=== PATIENT | female | born 1975 | race Caucasian/White ===

== ENCOUNTER → 2020-09-06 15:39 | Outpatient (CLI) | payer OTHER, SELFPAY ==
--- NOTE | 2020-09-06 15:40 | DI.MG.S_ITS ---
BILATERAL DIGITAL SCREENING MAMMOGRAM 3D/2D WITH CAD: 09/06/2020 CLINICAL: Routine screening. Baseline exam. No prior exams were available for comparison. The tissue of both breasts is heterogeneously dense. This may lower the sensitivity of mammography. Current study was also evaluated with a Computer Aided Detection (CAD) system. No significant masses, calcifications, or other findings are seen in either breast. IMPRESSION: NEGATIVE There is no mammographic evidence of malignancy. A 1 year screening mammogram is recommended. This exam was interpreted at Station ID: [id number]. NOTE: For mammograms, a report in lay terms will be sent to the patient. Approximately 15% of breast malignancies will not be visualized mammographically. In the management of a palpable breast mass, a negative mammogram must not discourage biopsy of a clinically suspicious lesion. Electronically Signed By: Demetrius hartmann/misael:09/06/2020 17:22:27 letter sent: Normal Exam ACR BI-RADS Category 1: Negative 3341F
== END ==
PROVIDERS: Referring Provider Obstetrics & Gynecology; Visit Provider Obstetrics & Gynecology
DX: Z12.31 Encounter for screening mammogram for malignant neoplasm of breast (principal)
CPT/HCPCS: 77063; 77067

== ENCOUNTER → 2022-04-27 10:32 | Outpatient (CLI) | payer OTHER, SELFPAY ==
--- NOTE | 2022-04-27 10:33 | DI.MG.S_ITS ---
BILATERAL DIGITAL SCREENING MAMMOGRAM 3D/2D WITH CAD: 04/27/2022 CLINICAL: Routine screening. Comparison is made to exam dated: 09/06/2020 mammogram - [facility]. There are scattered areas of fibroglandular density in both breasts (category b / 25%-50% glandular tissue). Current study was also evaluated with a Computer Aided Detection (CAD) system. No significant masses, calcifications, or other findings are seen in either breast. There has been no significant interval change. IMPRESSION: NEGATIVE There is no mammographic evidence of malignancy. A 1 year screening mammogram is recommended. Based on the Tyrer Cuzick model (a risk assessment model) the patient's lifetime risk is 6.5% and her 10 year risk is 1.2%. According to the ACR, ACS, and NCCN guidelines, an annual breast MRI exam along with mammogram is recommended if the patient's lifetime risk is 20% or greater. This exam was interpreted at Station ID: [id number]. NOTE: For mammograms, a report in lay terms will be sent to the patient. Approximately 15% of breast malignancies will not be visualized mammographically. In the management of a palpable breast mass, a negative mammogram must not discourage biopsy of a clinically suspicious lesion. Electronically Signed By: Ricki german/misael:04/30/2022 08:09:03 letter sent: Normal Exam ACR BI-RADS Category 1: Negative 3341F
== END ==
PROVIDERS: Referring Provider Obstetrics & Gynecology; Visit Provider Obstetrics & Gynecology
DX: Z12.31 Encounter for screening mammogram for malignant neoplasm of breast (principal)
CPT/HCPCS: 77063; 77067

== ENCOUNTER → 2022-09-05 08:53 | Outpatient (CLI) | payer OTHER, SELFPAY ==
[2022-09-05 10:06] LABS: Add Manual Diff / Slide Review NO; Basophils Absolute Auto 0 /uL (0-100); Basophils Percent Auto 0.2 % (0-2); Eosinophils Absolute Auto 100 /uL (0-450); Eosinophils Percent Auto 1.6 % (2-4); Hematocrit 40.7 % (36-46); Hemoglobin 14.1 g/dL (12.0-16.0); Lymphocytes Absolute Auto 1400 /uL (1100-4500); Lymphocytes Percent Auto 26.2 % (25-40); Mean Corpuscular HGB Conc 34.7 % (30-36); Mean Corpuscular Hemoglobin 33.9 PG (26-34); Mean Corpuscular Volume 97.7 fL (80-100); Monocytes Absolute Auto 600 /uL (0-900); Monocytes Percent Auto 10.8 % (3-14); Neutrophils Absolute Auto 3400 /uL (1500-7000); Neutrophils Percent Auto 61.2 % (50-75); Platelet Count 285 X10^3/uL (150-400); Red Blood Cell Count 4.17 X10^6/uL (4.0-5.2); Red Cell Distribution Width 12.3 % (11.6-14.8); White Blood Cell Count 5.5 X10^3/uL (4.5-11.0)
[2022-09-05 10:16] LABS: Hemoglobin A1C% w Est Avg Glu 5.1 % (4.0-6.0)
[2022-09-05 10:20] LABS: Alanine Aminotransferase 21 IU/L (<35); Albumin 4.5 g/dL (3.5-5.0); Albumin Globulin Ratio 1.3 (1.0-2.8); Alkaline Phosphatase 49 U/L (38-126); Aspartate Aminotransferase 33 IU/L (14-36); Bilirubin Total 0.7 mg/dL (0.2-1.3); Blood Urea Nitrogen 11 mg/dL (7-17); Calcium 9.2 mg/dL (8.4-10.2); Carbon Dioxide 28 mmol/L (22-32); Chloride 103 mmol/L (98-107); Cholesterol 196 mg/dL (140-199); Estimated Glomerular Filt Rate > 60 mL/min (>60); Globulin 3.5 g/dL (1.7-4.1); Glucose 88 mg/dL (70-100); HDL Cholesterol 52 mg/dL (40-60); HEMOLYSIS < 15 (0-50); LDL Cholesterol Calculated 127 mg/dL (<100); Potassium 4.5 mmol/L (3.4-5.1); Sodium 139 mmol/L (137-145); Triglycerides 83 mg/dL (35-150)
[2022-09-05 10:51] LABS: TSH w/ Reflex to FT4 0.87 uIU/mL (0.47-4.68)
== END ==
PROVIDERS: PCP Family Medicine; Referring Provider Family Medicine; Visit Provider Family Medicine
DX: Z13.1 Encounter for screening for diabetes mellitus (principal); Z13.29 Encounter for screening for other suspected endocrine disorder; Z13.6 Encounter for screening for cardiovascular disorders; Z13.9 Encounter for screening, unspecified
CPT/HCPCS: 36415; 80053; 80061; 83036; 84443; 85025

== ENCOUNTER 2022-12-10 10:33 | Day surgery (SDC) | payer OTHER, SELFPAY ==
[2022-12-10 10:57] VITALS: BMI 25.4
[2022-12-10 11:05] VITALS: BP 106/74; PULSE 77; RESP 16; TEMP 36.6; O2SAT 100
[2022-12-10] MEDS: LACTATED RINGERS 1,000 ML 200 ML IV (11:18)
--- NOTE | 2022-12-10 12:19 | PM.HP.1 ---
History of Present Illness History of Present Illness Date Patient Seen: 12/10/22 Time Patient Seen: 12:19 Chief complaint: Screening Colonoscopy Narrative: The patient presents for colorectal screening. They have never had any previous examination for such. No personal or family history of colon cancer. On further history denies any recent gastrointestinal symptoms. No nausea, vomiting, abdominal pain, loss of appetite, unexplained weight loss, change in bowel habits, or blood per rectum. [facility] Medical History (Updated 09/16/22 @ 17:42 by Leonardo Vásquez DO) Preventative health care Skin lesion Surgical History (Updated 08/01/20 @ 19:44 by Nazia Ashley) Abscessed tooth (~2004) Anesthesia Family History (Updated 08/01/20 @ 19:45 by Nazia Ashley) Mother Cancer Diabetes mellitus Social History household members: friend(s) Smoking Status: Former smoker alcohol intake: current Meds Home Medications and Allergies Home Medications Medication Instructions Recorded Confirmed Type Tylenol 2 PRN PRN Pain, Mild 12/10/22 History Allergies Allergy/AdvReac Type Severity Reaction Status Date / Time No Known Drug Allergies Allergy Verified 12/10/22 10:52 Exam Vital Signs (past 8 hours): - 12/10/22 11:05 Temperature 97.8 F Pulse Rate 77 Respiratory Rate 16 Blood Pressure 106/74 Pulse Oximetry 100 Oxygen Delivery Method Room Air Oxygen Delivery Method Room Air Narrative Exam Narrative: General adult woman alert oriented no acute distress Abdomen soft nontender nondistended Assessment & Plan Assessment & Plan narrative: The patient requires colorectal screening and colonoscopy is recommended. Technical details were discussed. Risks, benefits, alternatives explained. Risks including but not limited to myocardial infarction, aspiration, bleeding, pain, missed lesion, incomplete examination, need for further radiographic studies, colonic perforation, and need for major abdominal surgery were discussed. All questions were answered to their satisfaction, and they are in agreement with this plan.
--- NOTE | 2022-12-10 12:50 | PM.OP.COLON ---
Operative Date/Time/Diagnoses Date of procedure: 12/10/22 Time of procedure: 12:50 Pre-op diagnosis: Colorectal screening Post-op diagnosis: same Procedure & Clinicians Study performed: Colonoscopy Same procedure as scheduled: Yes Indications: Colorectal screening Surgeon: Gerson Weems Procedure Notes Procedure in detail: The history and physical was performed/updated and the patient is ASA class is 2. The procedure was discussed in detail with the patient. Potential risks complications including infection, bleeding, missed diagnosis, perforation, need for surgery, and were explained. Their questions were answered and informed consent was obtained. Patient was brought to the procedure room and placed standard monitoring equipment. The patient's vital signs were monitored continuously throughout the entire procedure. Prior to starting time-out was performed. The patient was placed in the left lateral recumbent position. Procedural sedation was administered by anesthesia. Examination began with a thorough inspection of the perianal area there was no evidence of fissures, fistulae, external hemorrhoids or cutaneous malignancy. The colonoscopy scope was then placed into the anal canal and was advanced to the cecum, which was identified by the ileocecal valve, the appendiceal orifice and the confluence of the taenia. The scope was then slowly withdrawn examining colon thoroughly in all directions, irrigating it of any residual stool. No masses or polyps noted within the colon. The colon was significant for tortuosity in particular in the ascending colon. Performance of the procedure required scope stiffener and external pressure The patient tolerated the procedure well. They will be discharged once criteria are met. The prep was of good/excellent quality. The withdrawl time was 6 minutes. Specimen(s): none sent Impression: Normal colonoscopy Post-procedure Recommendations: Colonoscopy in 10 years Disposition: same day surgery
[2022-12-10 12:58] VITALS: BP 103/65; PULSE 87; RESP 20; TEMP 36.6; O2SAT 96
[2022-12-10 13:03] VITALS: BP 104/76; PULSE 88; RESP 24; O2SAT 97
[2022-12-10 13:08] VITALS: BP 111/71; PULSE 76; RESP 21; O2SAT 99
[2022-12-10 13:13] VITALS: BP 109/71; PULSE 77; RESP 21; TEMP 36.6; O2SAT 97
== END 2022-12-10 13:25 | disposition home or self-care (01) ==
PROVIDERS: PCP Family Medicine; Referring Provider Surgery; Visit Provider Surgery
PROC: 0DJD8ZZ Inspection of Lower Intestinal Tract, Via Natural or Artificial Opening Endoscopic (ICD-10-PCS; CPT 45378; principal; 2022-12-10 11:45)
DX: Z12.11 Encounter for screening for malignant neoplasm of colon (principal)
CPT/HCPCS: 45378; 81025; J2704

== ENCOUNTER → 2023-05-17 10:55 | Outpatient (CLI) | payer OTHER, SELFPAY ==
--- NOTE | 2023-05-17 | DI.MG.S_ITS ---
BILATERAL DIGITAL SCREENING MAMMOGRAM 3D/2D WITH CAD: 05/17/2023 CLINICAL: Routine screening. Comparison is made to exams dated: 04/27/2022 mammogram and 09/06/2020 mammogram - [facility]. There are scattered areas of fibroglandular density in both breasts (category b / 25%-50% glandular tissue). Current study was also evaluated with a Computer Aided Detection (CAD) system. No significant masses, calcifications, or other findings are seen in either breast. There has been no significant interval change. IMPRESSION: NEGATIVE There is no mammographic evidence of malignancy. A 1 year screening mammogram is recommended. Based on the Tyrer Cuzick model (a risk assessment model) the patient's lifetime risk is 6.5% and her 10 year risk is 1.2%. According to the ACR, ACS, and NCCN guidelines, an annual breast MRI exam along with mammogram is recommended if the patient's lifetime risk is 20% or greater. This exam was interpreted at Station ID: [id number]. NOTE: For mammograms, a report in lay terms will be sent to the patient. Approximately 15% of breast malignancies will not be visualized mammographically. In the management of a palpable breast mass, a negative mammogram must not discourage biopsy of a clinically suspicious lesion. Electronically Signed By: Jesse doe/misael:05/19/2023 08:12:59 letter sent: Normal Exam ACR BI-RADS Category 1: Negative 3341F
== END ==
PROVIDERS: PCP Family Medicine; Referring Provider Obstetrics & Gynecology; Visit Provider Obstetrics & Gynecology
DX: Z12.31 Encounter for screening mammogram for malignant neoplasm of breast (principal)
CPT/HCPCS: 77063; 77067

== ENCOUNTER → 2024-02-27 06:41 | Outpatient (CLI) | payer OTHER, SELFPAY ==
--- NOTE | 2024-02-27 06:42 | DI.US.S_ITS ---
PROCEDURE: US PELVIC COMPLETE INDICATIONS: endometrial cells on pap TECHNIQUE: Real-time scanning was performed of the pelvic organs, with image documentation. Additional endovaginal scanning was necessary due to incomplete visualization of the adnexal and endometrial structures by transabdominal scanning. COMPARISON: None. FINDINGS: Uterus: Uterus is anteverted and normal in size at 11 x 6.3 x 5.4 cm. The myometrium is heterogeneous. The endometrium measures 19 mm combined thickness. Multiple uterine fibroids present. Largest as follows: -5.0 x 4.7 x 4.0 cm intramural fibroid along the posterior, right side. -3.6 x 3.0 x 3.3 cm subserosal fibroid along the left posterior margin. -2.1 x 1.3 x 1.5 cm left posterior subserosal fibroid. Ovaries: The right ovary measures 2.8 x 2.1 x 2.0 cm, with a calculated ovarian volume of 6 cc. The left ovary measures 3.2 x 2.2 x 2.2 cm, with a calculated ovarian volume of 8 cc. The ovaries have a normal sonographic appearance. Less than 12 follicles can be seen in each ovary. No adnexal masses are seen. Other: No pathologic free abdominal or pelvic fluid. IMPRESSION: Myomatous uterus, largest measuring 5 cm. Endometrial stripe measures 19 mm. We strive to produce accurate, complete, and clear reports of imaging services. To assist us in improving patient care, this report was composed using standard report templates and voice recognition software. Therefore, it may contain abnormal punctuation, insertions and/or omissions. Occasional wrong-word or sound-alike substitutions may occur. Though we review the report and make efforts to correct it, we do recommend that the report be read carefully in proper context to recognize any text inaccuracies. Dictated by: Malvin Willett M.D. on 02/27/2024 at 8:34 Approved by: Malvin Willett M.D. on 02/27/2024 at 8:36
== END ==
LOC: US 06:41
PROVIDERS: PCP Family Medicine; Referring Provider Obstetrics & Gynecology; Visit Provider Obstetrics & Gynecology
DX: N92.0 Excessive and frequent menstruation with regular cycle (principal); D25.1 Intramural leiomyoma of uterus; D25.2 Subserosal leiomyoma of uterus
CPT/HCPCS: 76830; 76856

== ENCOUNTER 2024-05-14 10:11 | Day surgery (SDC) | payer BC, SELFPAY ==
[2024-05-12 10:43] VITALS: BMI 24.7
[2024-05-14 11:31] VITALS: BP 131/87; PULSE 78; RESP 16; TEMP 36.8; O2SAT 100
[2024-05-14 11:32] VITALS: BMI 24.7
[2024-05-14] MEDS: ACETAMINOPHEN 325 MG TABLET 975 MG PO (11:37)
[2024-05-14] MEDS: LACTATED RINGERS 1,000 ML 21 ML IV (11:45)
--- NOTE | 2024-05-14 13:02 | PM.GYNHP.1 ---
History of Present Illness History of Present Illness Reason for admission: other (Labial hypertrophy and a vaginal septum) Narrative: Daniella Lilly is a 48 year old female 2 para 2 with labial hypertrophy and a vaginal septum She presents today for a labia plasty and excision of vaginal septum. [facility] Medical History (Updated 04/03/24 @ 21:44 by Clary Jones MD) Skin lesion Surgical History (Updated 08/01/20 @ 19:44 by Nazia Ashley) Anesthesia Abscessed tooth (~2004) Family History (Updated 08/01/20 @ 19:45 by Nazia Ashley) Mother Cancer Diabetes mellitus Social History household members: significant other Smoking Status: Former smoker alcohol intake: current Meds Home Medications and Allergies Home Medications Medication Instructions Recorded Confirmed Type acetaminophen 325 mg tablet 650 mg PO Q4H PRN Pain (Scale 05/12/24 05/12/24 History (Tylenol) Score 4-6) Allergies Allergy/AdvReac Type Severity Reaction Status Date / Time No Known Drug Allergies Allergy Verified 05/14/24 11:17 Exam Vital Signs (past 8 hours): - 05/14/24 11:31 Temperature 98.2 F Pulse Rate 78 Respiratory Rate 16 Blood Pressure 131/87 Pulse Oximetry 100 Oxygen Delivery Method Room Air Oxygen Delivery Method Room Air Narrative Exam Narrative: HEENT: No thyromegaly, no anterior cervical or supraclavicular lymphadenopathy. Lungs:Clear to auscultation bilaterally, no wheezes. Cardiovascular: Regular rate and rhythm, no murmurs, rubs, or gallops. Abdomen: No scars. No hepatosplenomegaly. No masses palpable. External genitalia: Normal Vagina: Normal Cervix: Normal Bimanual exam: [7 Week size anteverted uterus. Mobile.] Extremities: No edema Assessment & Plan Assessment & Plan narrative: Assessment: 48-year-old 2 para 2 with labial hypertrophy and a vaginal septum Plan: Labiaplasty and excision of vaginal septum The risks, benefits, and alternatives to the procedure were explained to the patient. The risks including bleeding, and infection. She understands these risks and agrees to proceed. A full par Q was held and consent form was signed. Time-Based Coding :: [TOTAL MINUTES] spent with patient and on the chart (including review of chart, obtaining history, exam, reviewing outside data, placing orders, documenting exam and treatment plan, and counseling patient) on [DATE].
--- NOTE | 2024-05-14 13:07 | PM.PREOP ---
Pre-operative Note Interval Note History & Physical reviewed/Exam performed by Physician: Yes Changes to H&P: No H&P completed within 30 days and has changed as indicated here:: 05/14/24
[2024-05-14] MEDS: CEFAZOLIN 2 GM/100 ML PREMIX 100 ML IV (13:37)
--- NOTE | 2024-05-14 13:42 | SUR.OPER ---
Lithotomy on padded OR bed, head on pillow, arms secured on padded arm boards at <90 degrees abduction. Legs secured in padded yellow fins stirrups.
[2024-05-14] MEDS: BUPIVACAINE 0.5% (PF) 30 ML, EPINEPHrine 0.15 MG INJ (14:03)
--- NOTE | 2024-05-14 14:24 | PM.GYNOP.1 ---
Operative Date/Time/Diagnoses Date of procedure: 05/14/24 Time of procedure: 14:25 Pre-op diagnosis: Labial hypertrophy Vaginal septum Post-op diagnosis: same Procedure & Clinicians Procedure: Procedures Operation Date: 05/14/24 12:15 Actual Procedure Side Surgeon p Bilateral Labiaplasty, excision of vaginal septum Bilateral Clary Jones MD Indications: 48-year-old 2 para 2 with labial hypertrophy and a vaginal septum. Surgeon: Clary Jones Anesthesia Type: General (LMA) and Local Operative Notes Findings: The left labia minora with 3 cm of excess tissue, the right labia minora with excess tissue A septum between the anterior vaginal wall just below the urethral meatus, and the left introitus. This septum measures 5 mm in diameter. Closure Type: primary Specimen(s): none Applied: catheter (in/out to insure that septum did not involve urethra) Estimated blood loss (mL): 5 Blood products transfused: none Procedure in detail: After informed consent was obtained, the patient was taken to the operating room where she was placed in the dorsal supine position. After adequate LMA general anesthesia was achieved, she was placed in the dorsal lithotomy position, and prepped and draped in the usual sterile fashion. A time-out was performed. A red rubber catheter was placed into the urethra to ensure that the septum did not involve the urethra. Local anesthetic was infused using 0.5% Marcaine with epinephrine at both ends of the septum. The Bovie was then used to excise the septum/with the mucosa. Hemostasis was achieved. Using a marker the excess labial tissue was marked bilaterally. 10 cc of 0.5% Marcaine with epinephrine were injected into the labia minora. Using the Metzenbaum scissors the excess tissue was excised. The Bovie was used for 2 areas of bleeding. Using an SH needle with 3-0 chromic, simple interrupted sutures were placed to reapproximate the skin. Hemostasis was achieved. Sponge, lap, and instrument counts were correct x2. The patient tolerated the procedure well, and was taken to PACU in stable condition. Complications: none Post-operative Condition: stable Disposition: PACU Plan for aftercare: Home after recovery
[2024-05-14 14:31] VITALS: BP 97/70; PULSE 92; RESP 16; TEMP 36.1; O2SAT 97
[2024-05-14 14:36] VITALS: BP 103/68; PULSE 88; RESP 16; O2SAT 99
[2024-05-14 14:41] VITALS: BP 113/67; PULSE 79; RESP 18; O2SAT 100
[2024-05-14 14:46] VITALS: BP 118/73; PULSE 74; RESP 18; O2SAT 99
== END 2024-05-14 15:05 | disposition home or self-care (01) ==
PROVIDERS: PCP Family Medicine; Referring Provider Obstetrics & Gynecology; Visit Provider Obstetrics & Gynecology
PROC: (CPT 57130; principal; 2024-05-14 12:15)
DX: Q52.10 Doubling of vagina, unspecified (principal); N90.60 Unspecified hypertrophy of vulva
CPT/HCPCS: 57130; 56620; J0171; J0690; J1100; J1885; J2250; J2405; J2704; J3010

== ENCOUNTER → 2024-06-12 08:02 | Outpatient (CLI) | payer BC, SELFPAY ==
--- NOTE | 2024-06-12 | DI.MG.S_ITS ---
BILATERAL DIGITAL SCREENING MAMMOGRAM 3D/2D WITH CAD: 06/12/2024 CLINICAL: Routine screening. Comparison is made to exams dated: 05/17/2023 mammogram, 04/27/2022 mammogram, and 09/06/2020 mammogram - [facility]. There are scattered areas of fibroglandular density (category b / 25%-50% glandular tissue). Current study was also evaluated with a Computer Aided Detection (CAD) system. No significant masses, calcifications, or other findings are seen in either breast. There has been no significant interval change. IMPRESSION: NEGATIVE There is no mammographic evidence of malignancy. A 1 year screening mammogram is recommended. Based on the Tyrer Cuzick model (a risk assessment model) the patient's lifetime risk is 6.5% and her 10 year risk is 1.3%. According to the ACR, ACS, and NCCN guidelines, an annual breast MRI exam along with mammogram is recommended if the patient's lifetime risk is 20% or greater. This exam was interpreted at Station ID: [id number]. NOTE: For mammograms, a report in lay terms will be sent to the patient. Approximately 15% of breast malignancies will not be visualized mammographically. In the management of a palpable breast mass, a negative mammogram must not discourage biopsy of a clinically suspicious lesion. Electronically Signed By: Demetrius hartmann/misael:06/12/2024 10:28:12 letter sent: Normal Exam ACR BI-RADS Category 1: Negative
== END ==
PROVIDERS: PCP Family Medicine; Referring Provider Family Medicine; Visit Provider Family Medicine
DX: Z12.31 Encounter for screening mammogram for malignant neoplasm of breast (principal)
CPT/HCPCS: 77063; 77067

== ENCOUNTER 2024-07-23 08:09 | Day surgery (SDC) | payer BC, SELFPAY ==
[2024-07-20 07:26] VITALS: BMI 25.7
--- NOTE | 2024-07-23 | PATH_ITS ---
[facility] Accession Number: [id number] No. of containers..01 Tissue . 01 Material submitted: . endometrium - ENDOMETRIAL CURETTINGS . 01 Diagnosis: ENDOMETRIUM, CURETTINGS: Fragments of benign, late proliferative to early secretory phase endometrium with stromal breakdown. Negative for atypia, hyperplasia or malignancy. [facility] 07/28/2024 1414 Local . 01 Electronically signed: . Lashell Em MD, Pathologist NPI- [id number] . 01 Gross description: . Received in formalin with two patient identifiers and endometrial curettings, are multiple richey and brown soft tissue fragments admixed with mucohemorrhagic material aggregating to 2.3 x 1.6 x 0.2 cm. Filtered and submitted in A1. ([id number]) /MRV 07/27/2024 1328 Local . 01 Pathologist provided ICD-10: N92.0 . 01 CPT . 863931 Specimen Comment: A courtesy copy of this report has been sent to [phone] Performed at: [address] [id number] MD Dylan Alanis MD Phone: [phone]
[2024-07-23] MEDS: LACTATED RINGERS 1,000 ML 42 ML IV (08:20)
[2024-07-23] MEDS: SCOPOLAMINE 1 PATCH TOP (08:22)
[2024-07-23 08:28] VITALS: BP 107/69; PULSE 66; RESP 16; TEMP 36.7; O2SAT 99; BMI 25.4
--- NOTE | 2024-07-23 09:42 | PM.PREOP ---
Pre-operative Note Interval Note History & Physical reviewed/Exam performed by Physician: Yes Changes to H&P: No H&P completed within 30 days and has changed as indicated here:: 07/02/24
[2024-07-23] MEDS: ACETAMINOPHEN IV 1,000 MG/100 ML VIAL 400 MG IV (09:50)
--- NOTE | 2024-07-23 09:58 | SUR.OPER ---
Lithotomy on padded OR bed, head on pillow, arms secured on padded arm boards at <90 degrees abduction. Legs secured in padded yellow fins stirrups.
[2024-07-23 10:21] VITALS: BP 108/57; PULSE 83; RESP 14; TEMP 36.7; O2SAT 98
[2024-07-23 10:26] VITALS: BP 107/70; PULSE 73; RESP 16; O2SAT 100
[2024-07-23 10:31] VITALS: BP 96/60; PULSE 66; RESP 16; O2SAT 100
[2024-07-23 10:36] VITALS: BP 90/65; PULSE 60; RESP 14; O2SAT 100
--- NOTE | 2024-07-23 10:39 | PM.GYNOP.1 ---
Operative Date/Time/Diagnoses Date of procedure: 07/23/24 Time of procedure: 10:40 Pre-op diagnosis: Menorrhagia Post-op diagnosis: same Procedure & Clinicians Procedure: Procedures Operation Date: 07/23/24 09:45 Actual Procedure Side Surgeon p Hysteroscopy D&C , MYOSURE, Novasure Ablation Clary Jones MD Indications: 48 year old with menorrhagia Surgeon: Clary Jones Anesthesia Type: General (LMA) Operative Notes Findings: 8 wk size anteverted uterus Both fallopian tube ostia observed No polyps or fibroids Closure Type: not applicable Specimen(s): endometrial curettings Estimated blood loss (mL): 3 Blood products transfused: none Procedure in detail: After informed consent was obtained, the patient was taken to the operating room where she was placed in the dorsal supine position. After LMA general anesthesia was obtained, she was placed in the dorsal lithotomy position and prepped and draped in the usual sterile fashion. A timeout was performed. A bivalve speculum was placed into the vagina. A single tooth tenaculum was placed on the anterior lip of the cervix. The cervical os was sequentially dilated until the Myosure hysteroscope passed easily into the uterus. Both fallopian tubes were observed. Curettings were obtained. The hysteroscope was removed. The uterus was measured from the internal os to the fundus and was 5.5cm. This was set on the Novasure catheter and the generator. The Novasure catheter was placed into the uterine cavity and opened. The width was 3.7 cm. This was set on the generator. The power was [address] [place]. The cervix was capped and the cavity assessment was performed and passed. The cycle was initiated and lasted 1:37 sec. The Novasure catheter was closed and removed from the uterus. The single tooth tenaculum was removed from the cervix. The bivalve speculum was removed from the vagina. Sponge, lap and instrument count was correct x 2. The patient tolerated the procedure well and was taken to PACU in stable condition. Fluid deficit: 95cc Fluid volume 115 cc Max pressure: 80mm Hg Complications: none Post-operative Condition: stable Disposition: PACU Plan for aftercare: Home after recovery
[2024-07-23 11:00] VITALS: BP 113/77; PULSE 65; RESP 16; O2SAT 100
== END 2024-07-23 11:02 | disposition home or self-care (01) ==
PROVIDERS: PCP Family Medicine; Referring Provider Obstetrics & Gynecology; Visit Provider Obstetrics & Gynecology
PROC: 0U5B8ZZ Destruction of Endometrium, Via Natural or Artificial Opening Endoscopic (ICD-10-PCS; CPT 58563; principal; 2024-07-23 09:45)
DX: N92.0 Excessive and frequent menstruation with regular cycle (principal)
CPT/HCPCS: 58563; 81025; J0134; J1100; J1885; J2250; J2405; J2704

== ENCOUNTER → 2024-12-04 07:59 | Outpatient (CLI) | payer BC, SELFPAY ==
[2024-12-04 08:54] LABS: Add Manual Diff / Slide Review NO; Basophils Absolute Auto 0 /uL (0-100); Basophils Percent Auto 0.5 % (0-2); Eosinophils Absolute Auto 100 /uL (0-450); Eosinophils Percent Auto 2.9 % (2-4); Hematocrit 40.4 % (36-46); Hemoglobin 13.9 g/dL (12.0-16.0); Lymphocytes Absolute Auto 1700 /uL (1100-4500); Lymphocytes Percent Auto 34.8 % (25-40); Mean Corpuscular HGB Conc 34.5 % (30-36); Mean Corpuscular Hemoglobin 33.9 PG (26-34); Mean Corpuscular Volume 98.5 fL (80-100); Monocytes Absolute Auto 500 /uL (0-900); Monocytes Percent Auto 9.8 % (3-14); Neutrophils Absolute Auto 2500 /uL (1500-7000); Platelet Count 269 X10^3/uL (150-400); Red Cell Distribution Width 12.6 % (11.6-14.8); White Blood Cell Count 4.8 X10^3/uL (4.5-11.0)
[2024-12-04 09:49] LABS: Alanine Aminotransferase 27 IU/L (<35); Albumin 4.2 g/dL (3.5-5.0); Albumin Globulin Ratio 1.7 (1.0-2.8); Alkaline Phosphatase 47 U/L (38-126); Aspartate Aminotransferase 29 IU/L (14-36); BUN Creatinine Ratio 20.3 (6-22); Bilirubin Total 0.5 mg/dL (0.2-1.3); Blood Urea Nitrogen 14 mg/dL (7-17); Calcium 9.7 mg/dL (8.4-10.2); Carbon Dioxide 28 mmol/L (22-32); Chloride 103 mmol/L (98-107); Cholesterol 170 mg/dL (140-199); Estimated Glomerular Filt Rate > 60 mL/min (>60); Globulin 2.5 g/dL (1.7-4.1); Glucose 90 mg/dL (70-100); HDL Cholesterol 48 mg/dL (40-60); HEMOLYSIS < 15 (0-50); LDL Cholesterol Calculated 89 mg/dL (<100); Potassium 4.9 mmol/L (3.4-5.1); Sodium 137 mmol/L (137-145); Total Protein 6.7 g/dL (6.3-8.2); Triglycerides 164 mg/dL (35-150)
[2024-12-04 10:19] LABS: TSH w/ Reflex to FT4 0.91 uIU/mL (0.47-4.68)
== END ==
LOC: LAB 08:01
PROVIDERS: PCP Family Medicine; Referring Provider Family Medicine; Visit Provider Family Medicine
DX: Z00.00 Encounter for general adult medical examination without abnormal findings (principal)
CPT/HCPCS: 36415; 80053; 80061; 84443; 85025

== ENCOUNTER → 2025-06-17 16:23 | Outpatient (CLI) | payer BC, SELFPAY ==
--- NOTE | 2025-06-17 16:24 | DI.MG.S_ITS ---
MM screening mammo BI: 06/17/2025. BI-RADS: 1 CLINICAL: 49-year old female for bilateral screening mammogram. Tyrer-Cuzick lifetime risk of 4.7%. No personal or first-degree family history of breast cancer. PRIOR EXAMS 06/12/2024, 05/17/2023, 04/27/2022, 09/06/2020. MAMMOGRAPHY TECHNIQUE: 2D and 3D (tomosynthesis) digital mammographic views obtained, with additional images as needed for full coverage. Current study was also evaluated with a Computer Aided Detection (CAD) system. DENSITY B. There are scattered areas of fibroglandular density. MAMMOGRAPHY FINDINGS Bilateral: No suspicious mass, asymmetry, microcalcification, or other abnormality seen. IMPRESSION: * No evidence of malignancy. RECOMMENDATIONS Bilateral * Annual screening mammography. OVERALL ASSESSMENT CATEGORY BI-RADS-1: Negative. The [place] [employer] recommends annual screening mammography beginning at age 40 for women with average risk of breast cancer. ELECTRONICALLY SIGNED: Ricki Vega M.D. on 06/17/2025 at 08:56:44 PM PT Interpreting Station ID: [id number]
== END ==
LOC: MAMMO 16:23
PROVIDERS: PCP Family Medicine; Referring Provider Family Medicine; Visit Provider Family Medicine
DX: Z12.31 Encounter for screening mammogram for malignant neoplasm of breast (principal)
CPT/HCPCS: 77063; 77067